=== PATIENT | female | born 1945 | race Caucasian/White ===

== ENCOUNTER → 2016-08-15 | Outpatient (REF) | payer BC | LOC: M SFHCCLAY 10:08 → EEVIPCON 10:08 | PROVIDERS: ATTEND Nurse Practitioner Family | DX: N39.9 Disorder of urinary system, unspecified (principal) ==

== ENCOUNTER → 2016-08-25 | Outpatient (REF) | payer BC ==
[2016-08-25 20:12] LABS: INR 3.85
== END ==
LOC: M LABDRAWC 17:13
PROVIDERS: ATTEND Internal Medicine
DX: Z51.81 Encounter for therapeutic drug level monitoring (principal); Z79.01 Long term (current) use of anticoagulants

== ENCOUNTER → 2016-08-25 | Outpatient (CLI) | payer BC ==
--- NOTE | 2016-08-25 11:56 | REP ---
Clinical: Acute right shoulder pain. Technique: Internal rotation, external rotation, and Y view. Findings: Advanced degenerative changes include osteopenia, cortical irregularity and spurring as well as chondrocalcinosis. The subacromial space is widened to 20 mm suggesting associated laxity. No acute fracture dislocation. Impression: Osteopenia and early advanced degenerative changes.
== END ==
LOC: M CLY 11:14
PROVIDERS: ATTEND Family Medicine
DX: M85.811 Other specified disorders of bone density and structure, right shoulder (principal)

== ENCOUNTER → 2016-09-25 | Outpatient (REF) | payer BC ==
[2016-09-25 17:48] LABS: INR 2.3
== END ==
LOC: M LABDRAWC 16:38
PROVIDERS: ATTEND Internal Medicine
DX: Z51.81 Encounter for therapeutic drug level monitoring (principal); Z79.01 Long term (current) use of anticoagulants

== ENCOUNTER → 2016-10-15 | Outpatient (CLI) | payer BC ==
--- NOTE | 2016-10-15 14:41 | REP ---
MRI RIGHT SHOULDER: TECHNIQUE: Axial T2 fat sat, gradient echo, sagittal oblique T2 fat sat, coronal oblique T1, T2 fat sat. There is a full thickness tear of the supraspinatus tendon predominantly anteriorly extending posteriorly into the substance of the tendon. There is partial tear of the infraspinatus tendon. There are moderate hypertrophic degenerative changes of the acromioclavicular joint. There is a type II acromion. Biceps tendon is within the bicipital groove. There is no Hill-Sachs deformity. Deltoid muscle demonstrates no abnormal signal. There does appear to be a SLAP tear present. There also appears to be a tear of the posterior labrum which involves the posterior glenoid cartilage. There is diffuse chondromalacia. Tiny subchondral cystic changes are seen in the humeral head and in the glenoid. A moderate joint effusion is present with fluid extending into the subacromial subdeltoid bursae. IMPRESSION: Full thickness tear anterior portion of supraspinatus tendon extends into the substance of the more posterior tendon as well. There is a partial tear of the infraspinatus tendon. There are moderate hypertrophic degenerative changes of the acromioclavicular joint. There appears to be a SLAP tear. There also appears to be a tear of the posterior labrum and glenoid cartilage. Moderate joint effusion extends into the subacromial subdeltoid bursae. Signed by Kelvin Brown MD 10/15/2016 05:23 P
== END ==
LOC: M RAD 12:42
PROVIDERS: ATTEND Family Medicine
DX: S46.011A Strain of muscle(s) and tendon(s) of the rotator cuff of right shoulder, initial encounter (principal); X58.XXXA Exposure to other specified factors, initial encounter; Y92.89 Other specified places as the place of occurrence of the external cause; Y93.89 Activity, other specified; Y99.8 Other external cause status

== ENCOUNTER → 2016-10-29 | Outpatient (REF) | payer BC ==
[2016-10-29 19:12] LABS: INR 1.76
== END ==
LOC: M LABDRAWC 17:05
PROVIDERS: ATTEND Internal Medicine
DX: Z51.81 Encounter for therapeutic drug level monitoring (principal); Z79.01 Long term (current) use of anticoagulants

== ENCOUNTER → 2016-11-05 | Outpatient (REF) | payer MEDICARE | LOC: M SFHCCLAY 15:18 | PROVIDERS: ATTEND Family Medicine | DX: N30.00 Acute cystitis without hematuria (principal) ==

== ENCOUNTER → 2016-11-12 | Outpatient (REF) | payer MEDICARE ==
[2016-11-12 17:39] LABS: INR 4.31
== END ==
LOC: M LABDRAWC 16:26
PROVIDERS: ATTEND Internal Medicine
DX: Z79.01 Long term (current) use of anticoagulants (principal)